=== PATIENT | female | born 1940 | race Caucasian/White ===

== ENCOUNTER 2021-11-06 07:35 | Day surgery (SDC) | payer OTHER ==
[2021-11-04 13:06] LABS: BASOPHILS % (AUTO) 0.7 % (0.0-5.0); EOSINOPHILS % (AUTO) 0.7 % (0.0-8.0); HEMATOCRIT 43.8 % (36-48); LYMPHOCYTES % (AUTO) 14.2 % (21.0-51.0); MEAN CORPUSCULAR HEMOGLOBIN 32.1 pg (27.0-33.0); MEAN CORPUSCULAR HGB CONC 32.9 g/dL (32.0-36.0); MEAN CORPUSCULAR VOLUME 97.8 fL (79-99); MONOCYTES % (AUTO) 10.5 % (3.0-13.0); NEUTROPHILS % (AUTO) 73.5 % (40.0-77.0); PLATELET COUNT (AUTO) 156 K/uL (130-400); RED BLOOD CELL COUNT(AUTO) 4.48 MIL/uL (4.00-5.50); RED CELL DISTRIBUTION WIDTH 14.4 % (11.0-15.5); WHITE BLOOD COUNT (AUTO) 5.7 K/uL (4.8-10.8)
[2021-11-04 13:16] LABS: INR 1.32 (0.85-1.15)
[2021-11-04 13:23] LABS: CREATININE 0.8 mg/dL (0.5-1.5); POTASSIUM 3.6 mmol/L (3.5-5.1)
[2021-11-05 09:00] VITALS: BP 145/91
[~2021-11-06] VITALS: Ht 162.6 cm; Wt 56.8 kg
[2021-11-06] VITALS (21 sets, daily range): BP systolic 122–143; BP diastolic 61–99
[~2021-11-06 07:35] MED LIST: CALC-1125 PO; CALC-866 PO; FURO20TA4 PO; MAGN400T40 PO; METO25TA6 PO; METO50TA18 PO; MULT-1367 PO; POTA99TA26 PO; RIVA20TA PO
[2021-11-06] MEDS ORDERED: 0.9%NACL 1000ML 1,000 ML IV SCH (08:00)
[2021-11-06] MEDS ORDERED: FLUMAZENIL 0.1MG/1ML 5ML VIAL IV ONE (09:03)
[2021-11-06] MEDS ORDERED: FENTANYL CITRATE PF 50 MCG/1 ML 2ML VIAL ONE ×2 (09:04→10:49)
[2021-11-06] MEDS ORDERED: NALOXONE HCL 0.4 MG/1 ML ML ONE (09:04)
[2021-11-06] MEDS ORDERED: MIDAZOLAM HCL 1 MG/ML 2ML VIAL ONE ×2 (09:05→10:49)
== END 2021-11-06 13:35 | disposition home or self-care (01) ==
LOC: DAH 07:35
PROVIDERS: ATTEND Internal Medicine Cardiovascular Disease
DX: I48.0 Paroxysmal atrial fibrillation (principal); I11.0 Hypertensive heart disease with heart failure; I50.22 Chronic systolic (congestive) heart failure; Z87.891 Personal history of nicotine dependence; Z90.49 Acquired absence of other specified parts of digestive tract; Z98.890 Other specified postprocedural states; Z82.49 Family history of ischemic heart disease and other diseases of the circulatory system; Z83.3 Family history of diabetes mellitus; Z72.89 Other problems related to lifestyle; Z88.8 Allergy status to other drugs, medicaments and biological substances; Z79.01 Long term (current) use of anticoagulants
CPT/HCPCS: 36415; 80048; 85025; 85610; 85730; 92960; 93005 ×2; A4215; A4216; A4221; A4222; A4223 ×3; A4606; A4663; A7002; J2250; J3010; J7030 ×2; 99152; J2310; J3490

== ENCOUNTER 2024-08-11 06:07 | Day surgery (SDC) | payer OTHER ==
[2024-08-09 10:44] VITALS: BP 111/78; PULSE 97; RESP 18; TEMP 97.4
[2024-08-09 10:58] LABS: BASOPHILS # (AUTO) 0.04 K/uL (0.00-0.20); BASOPHILS % (AUTO) 0.8 % (0.0-5.0); EOSINOPHILS # (AUTO) 0.05 K/uL (0.00-0.70); HEMATOCRIT 41.8 % (36-48); IMMATURE GRANULOCYTE ABSOLUTE 0.01 K/uL (0-1); LYMPHOCYTES # (AUTO) 1.2 K/uL (1.0-4.8); LYMPHOCYTES % (AUTO) 23.3 % (21.0-51.0); MEAN CORPUSCULAR HEMOGLOBIN 29.8 pg (27.0-33.0); MEAN CORPUSCULAR HGB CONC 32.8 g/dL (32.0-36.0); MEAN CORPUSCULAR VOLUME 91.1 fL (79-99); MONOCYTES # (AUTO) 0.5 K/uL (0.1-1.0); MONOCYTES % (AUTO) 9.9 % (3.0-13.0); NEUTROPHILS # (AUTO) 3.4 K/uL (1.8-7.7); NEUTROPHILS % (AUTO) 64.8 % (40.0-77.0); PLATELET COUNT (AUTO) 255 K/uL (130-400); RED BLOOD CELL COUNT(AUTO) 4.59 MIL/uL (4.00-5.50); RED CELL DISTRIBUTION WIDTH 15.9 % (11.0-15.5); WHITE BLOOD COUNT (AUTO) 5.2 K/uL (4.8-10.8)
--- NOTE | 2024-08-09 11:06 | EKG ---
[facility] Test Date: 2024-08-09 Test Time: 11:31:43 Pat Name: RANDY KELLY Department: [facility] Room: Gender: F Slabber: [id number] : 1940 Requested By: DAO FALLON Order Number: [id number] Reading MD: Rodrigue Petit Measurements Intervals [place] Rate: 91 P: 0 [place]: 0 QRS: 9 QRSD: 93 T: 252 QT: 380 QTc: 467 Interpretive Statements Atrial fibrillation with controlled ventricular response Low voltage, extremity leads Anterolateral ischemia Nonspecific repol abnormality, diffuse leads Compared to ECG 06/21/2024 08:55:23 Low QRS voltage now present Early repolarization now present Myocardial infarct finding still present Electronically Signed On 08-09-2024 19:13:16 [address] FREIGHT CONDUCTOR by Rodrigue Petit Please click the below link to view image of tracing.
[2024-08-09 11:09] LABS: POTASSIUM 5.1 mmol/L (3.5-5.1)
[2024-08-09 11:12] LABS: INR 1.11 (0.85-1.15); PROTHROMBIN TIME 11.9 SEC (9.6-11.6)
[2024-08-09 11:13] LABS: PARTIAL THROMBOPLASTIN TIME 30.3 SEC (26.3-35.5)
[2024-08-09 11:23] LABS: B-TYPE NATRIURETIC PEPTIDE 708 pg/mL (0-100)
--- NOTE | 2024-08-09 11:27 | HMCIMG ---
CHEST 1VW HISTORY: Preop COMPARISON: None FINDINGS: A frontal projection of the chest was obtained. No acute pulmonary infiltrates is seen. Right midlung pulmonary nodule is seen may be related to granuloma. There is dextroscoliosis. Degenerative changes are seen of the heart is enlarged. Aortic calcifications are seen. Mild interstitial fibrotic changes are seen. IMPRESSION: 1. No acute pulmonary infiltrate is seen.
--- NOTE | 2024-08-10 09:19 | NUR ---
REPORT REPORTED BNP/NA/CXR/EKG TO ANNA MERCADO NP. OK TO PROCEED
[2024-08-11] VITALS (12 sets, daily range): BP systolic 95–124; BP diastolic 52–75; PULSE 67–80; RESP 14–16; TEMP 97.3–98.1
[~2024-08-11] VITALS: Ht 162.6 cm; Wt 52.8 kg
[~2024-08-11 06:07] MED LIST changes: -CALC-1125 PO; -CALC-866 PO; +EMPA10TA PO; +LEVO50CA4 PO; +MAGN400C PO; -MAGN400T40 PO; +METO-391 PO; -METO25TA6 PO; -METO50TA18 PO; -POTA99TA26 PO; +SACU1TAB PO; +SPIR25TA6 PO
[2024-08-11] MEDS: 0.9%NACL 1000ML 1,000 ML IV SCH (07:16)
[2024-08-11] MEDS ORDERED: IOHEXOL-350 75 ML VIAL IV ONE (10:17)
[2024-08-11] MEDS ORDERED: NITROGLYCERIN 50MG VIAL ONE (10:17)
[2024-08-11] MEDS ORDERED: LIDOCAINE HCL 400MG/20ML VIAL ONE (10:17)
[2024-08-11] MEDS ORDERED: HEParin-NS 1,000 UNIT/500 ML 1,000 ML IV ONE (10:17)
[2024-08-11] MEDS ORDERED: HEParin 10,000 UNIT/10ML (1,000 UNIT/ML) VIAL ONE (10:17)
[2024-08-11] MEDS ORDERED: FENTanyl CITRate PF 50 MCG/1 ML 2ML VIAL ONE (10:31)
[2024-08-11] MEDS ORDERED: MIDAZOLAM HCL 1 MG/ML 2ML VIAL ONE (10:32)
--- NOTE | 2024-08-11 11:47 | PRN ---
PROCEDURE NOTE Indications: -Chronic systolic congestive heart failure (LVEF: 15-20% 2023) -Persistent atrial fibrillation s/p unsuccessful DCCV on 06/21/2024 -HTN -Normal Lexiscan stress test done on 11/21/2021 -PAD -Former tobacco abuse Procedures: Coronary angiogram, right common femoral angiogram Introduction: After informed written consent was obtained, the patient was brought to the Catheterization Lab in the usual fasting state. Following sterile prep and drape, a time out was performed, then moderate sedation was administered, 1mg of Versed and 50mcg of Fentanyl, then 1% Lidocaine was infiltrated into the right femoral groin. Using a Modified Seldinger technique, a 6Fr Sheath was inserted into the right common femoral artery. While under fluoroscopic guidance, diagnostic coronary catheters were advanced over a wire into the central circulation where they were aspirated, flushed and placed to pressure monitoring, once the wire was removed. Coronary Angio: The left and right coronary arteries were engaged with appropriate catheters and angiography was performed under continuous pressure monitoring. Cardiac Findings: Right dominant system LM: Large caliber vessel with mild luminal irregularities. The vessel bifurcates into the LAD and LCX. LAD: Large caliber vessel with 20% stenosis in the mid LAD. The rest of the vessel has mild luminal irregularities. DIAG1: Medium caliber vessel with mild luminal irregularities DIAG2: Medium caliber vessel with mild luminal irregularities LCx: Large caliber vessel with 20% stenosis in the ostial LCX. The rest of the vessel has mild luminal irregularities. OM1: Large caliber vessel with mild luminal irregularities. RCA: Medium caliber vessel with 30% stenosis in the proximal RCA. The rest of the vessel has mild luminal irregularities. RPDA: Medium caliber vessel with mild luminal irregularities. RPLV: Medium caliber vessel with mild luminal irregularities. Medications given: Versed 1mg, Fentanyl 50mcg Coronary Intervention: None Complications: None Conscious Sedation Monitoring: Under my direct order and supervision, medication for moderate conscious sedation was administered by the nursing staff and the patients level of consciousness and physiological status was monitored by an independent trained nurse. Closure of Access Site: After the case completed the sheath was pulled and manual pressure was applied resulting in hemostasis. Conclusion: 1. Nonobstructive CAD 2. 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 Chronic systolic congestive heart failure (LVEF: 15-20% 2023) 4. Persistent atrial fibrillation s/p unsuccessful DCCV on 06/21/2024 5. HTN 6. Normal Lexiscan stress test done on 11/21/2021 7. PAD 8. Former tobacco abuse Recommendation: 1. Continue goal directed medical therapy 2. Groin precautions 3. 5 hours of bedrest 4. No IV fluids 5. Please administer 40 mg IV furosemide x 1 dose and we will increase her home dose of furosemide to 20 mg BID 6. No driving x 48 hours 7. No strenuous activity or heavy lifting x 2 weeks. 8. Please restart Xarelto 20 mg daily tonight. 9. Okay to discharge home once bedrest is complete and the patient's right groin access site is soft to palpation and free of significant bleeding, bruising, or hematoma formation. 10. The patient will be referred to EP for atrial fibrillation ablation evaluation (appt scheduled for 09/28/2024). DAO FALLON MD Aug 11, 2024 11:47
[2024-08-11] MEDS: furoSEMIDE 40MG VIAL IV ONE (12:58)
== END 2024-08-11 16:30 | disposition home or self-care (01) ==
LOC: DAH 06:07
PROVIDERS: ATTEND Internal Medicine Cardiovascular Disease
DX: I11.0 Hypertensive heart disease with heart failure (principal); I50.22 Chronic systolic (congestive) heart failure; I48.0 Paroxysmal atrial fibrillation; I25.10 Atherosclerotic heart disease of native coronary artery without angina pectoris; I48.19 Other persistent atrial fibrillation; I42.8 Other cardiomyopathies; I87.2 Venous insufficiency (chronic) (peripheral); E11.9 Type 2 diabetes mellitus without complications; J44.9 Chronic obstructive pulmonary disease, unspecified; F17.200 Nicotine dependence, unspecified, uncomplicated; E66.9 Obesity, unspecified; E03.9 Hypothyroidism, unspecified; I25.2 Old myocardial infarction; E78.5 Hyperlipidemia, unspecified; K21.9 Gastro-esophageal reflux disease without esophagitis; Z86.73 Personal history of transient ischemic attack (TIA), and cerebral infarction without residual deficits; Z68.35 Body mass index [BMI] 35.0-35.9, adult; Z90.710 Acquired absence of both cervix and uterus; Z98.890 Other specified postprocedural states; Z88.5 Allergy status to narcotic agent; Z88.8 Allergy status to other drugs, medicaments and biological substances; Z79.899 Other long term (current) drug therapy
CPT/HCPCS: 80048; 83880; 85025; 85610; 85730; 36415; 71045; 93005; 93454; 82948; C1894 ×2; J3010; J3490 ×2; J7030; J2250; J1940; J1644; Q9967; A4215; A4335; A4222; A4221; A4663; A4216; A4606; A4223 ×3; A4554; 99156; 99157

== ENCOUNTER 2024-10-13 06:42 | Observation (INO) | payer OTHER ==
[~2024-10-13] VITALS: Ht 162.6 cm; Wt 49.9 kg
[2024-10-13 07:50] LABS: BASOPHILS # (AUTO) 0.04 K/uL (0.00-0.20); BASOPHILS % (AUTO) 0.8 % (0.0-5.0); EOSINOPHILS # (AUTO) 0.06 K/uL (0.00-0.70); EOSINOPHILS % (AUTO) 1.1 % (0.0-8.0); HEMATOCRIT 43.6 % (36-48); IMMATURE GRANULOCYTE ABSOLUTE 0.02 K/uL (0-1); LYMPHOCYTES # (AUTO) 1.1 K/uL (1.0-4.8); LYMPHOCYTES % (AUTO) 21.4 % (21.0-51.0); MEAN CORPUSCULAR HEMOGLOBIN 31.7 pg (27.0-33.0); MEAN CORPUSCULAR HGB CONC 34.2 g/dL (32.0-36.0); MEAN CORPUSCULAR VOLUME 92.8 fL (79-99); MONOCYTES # (AUTO) 0.8 K/uL (0.1-1.0); MONOCYTES % (AUTO) 14.2 % (3.0-13.0); NEUTROPHILS # (AUTO) 3.3 K/uL (1.8-7.7); NEUTROPHILS % (AUTO) 62.1 % (40.0-77.0); PLATELET COUNT (AUTO) 263 K/uL (130-400); RED CELL DISTRIBUTION WIDTH 17.5 % (11.0-15.5); WHITE BLOOD COUNT (AUTO) 5.3 K/uL (4.8-10.8)
[2024-10-13 08:18] LABS: ALBUMIN 4.3 g/dL (3.5-5.0); BILIRUBIN,TOTAL 0.9 mg/dL (0.2-1.0); CREATININE 0.8 mg/dL (0.5-1.0); MAGNESIUM 1.9 mg/dL (1.80-2.40); POTASSIUM 4.3 mmol/L (3.5-5.1); THYROID STIMULATING HORMONE 0.7 uIU/mL (0.36-3.74)
[2024-10-13] MEDS: AMIOdarone 900MG VIAL 150 MG in DEXTROSE 5%-WATER 100 ML IV SCH (09:46)
[2024-10-13] MEDS: AMIOdarone 900MG VIAL 360 MG in DEXTROSE 5%-WATER 200 ML IV SCH (10:00)
--- NOTE | 2024-10-13 10:07 | EKG ---
[facility] Test Date: 2024-10-13 Test Time: 09:44:07 Pat Name: RANDY KELLY Department: DIRECT Room: 217 Gender: F Gas Specialist: [id number] : 1940 Requested By: CHACORTA CARTER Order Number: [id number] Reading MD: Ollie Glynn Measurements Intervals [place] Rate: 68 P: 0 [place]: 0 QRS: -14 QRSD: 106 T: -63 QT: 418 QTc: 445 Interpretive Statements Atrial fibrillation Low voltage, extremity leads Abnormal T, consider ischemia, diffuse leads Compared to ECG 08/09/2024 11:31:43 T-wave abnormality now present Early repolarization no longer present Possible ischemia still present Electronically Signed On 10-14-2024 17:37:19 ADMISSIONS GATE ATTENDANT by Ollie Glynn Please click the below link to view image of tracing.
[2024-10-13] MEDS ORDERED: DiphenhydrAMINE HCL 25 MG CAPSULE PO PRN (16:00)
[2024-10-13] MEDS: AMIOdarone 900MG VIAL 540 MG in DEXTROSE 5%-WATER 300 ML IV SCH (16:40)
--- NOTE | 2024-10-13 19:17 | NUR ---
PATIENT AMBLATED STEADY GAIT TO BATHROOM WITH IV PUMP, SANDWICH AND FLUIDS GIVEN PER REQUEST.
[2024-10-13] MEDS: ZOLPidem TARTrate 5 MG TAB PO PRN (22:26)
[2024-10-14] VITALS (23 sets, daily range): BP systolic 83–147; BP diastolic 35–82; PULSE 35–76; RESP 12–34; TEMP 98.6; O2SAT 100
--- NOTE | 2024-10-14 02:45 | NUR ---
ASSUMED PT CARE
[2024-10-14] MEDS ORDERED: proPOFol 10 MG/ML 20ML VIAL IV ONE (09:16)
--- NOTE | 2024-10-14 09:56 | PRN ---
Procedure Note INDICATION FOR PROCEDURE: Persistent atrial fibrillation PROCEDURE: Cardioversion DATE OF PROCEDURE: 10/14/2024 CABLEMAN: Dr. Ace Carter PROCEDURE NOTE: The patient was prepared in her room in a fasting state. General anesthesia was provided by the anesthesia service. A single synchronized shock of 120 joules was delivered resulting in sinus bradycardia with accelerated junctional escape beats. The patient tolerated the procedure well. IMPRESSION: 1. Persistent atrial fibrillation status post successful cardioversion 2. Sinus bradycardia with accelerated junctional escape beats. PLAN: 1. Discontinue home metoprolol. Of note, she has not been getting it in the hospital. 2. We will observe for a few hours and observe her heart rate as she ambulates, etc. 3. Amiodarone IV protocol has just completed. The patient does weigh only 50 kg. We will evaluate her discharge dose of amiodarone later today and prior to discharge. ACE CARTER MD Oct 14, 2024 09:56
--- NOTE | 2024-10-14 11:00 | EKG ---
[facility] Test Date: 2024-10-14 Test Time: 09:41:44 Pat Name: RANDY KELLY Department: [facility] Room: 217 1 Gender: F Health Data Administrator: SUJATHA : 1940 Requested By: CHACORTA CARTER Order Number: [id number] Reading MD: Ollie Glynn Measurements Intervals [place] Rate: 42 P: 0 [place]: 0 QRS: 2 QRSD: 92 T: -61 QT: 520 QTc: 434 Interpretive Statements Atrial fibrillation with slow ventricular response Septal infarct , age undetermined ST & T wave abnormality, consider inferior ischemia Compared to ECG 10/13/2024 09:44:07 Myocardial infarct finding now present ST (T wave) deviation now present T-wave abnormality no longer present Possible ischemia still present Electronically Signed On 10-14-2024 17:40:13 IT COMPLIANCE MANAGER by Ollie Glynn Please click the below link to view image of tracing.
[2024-10-14] MEDS ORDERED: AMIO200T68 PO (12:56)
--- NOTE | 2024-10-14 13:02 | DS ---
Discharge Summary HOSPITAL COURSE SUMMARY: The patient was electively admitted for intravenous amiodarone infusion protocol followed by cardioversion. The 24 hour infusion was completed this morning. She then underwent successful cardioversion with 120 joules. She came back with sinus bradycardia in the 40s with some junctional escape beats. She was observed for about an hour and then took and accompanied hallway walk at which time her heart rate increased to the 50s to 70s. She felt reasonably well. PROCEDURES: Cardioversion as noted above. DISCHARGE INSTRUCTIONS/PLAN: 1. The patient will start amiodarone 200 mg daily starting tomorrow morning 2. I will see her in the office in approximately 2 weeks 3. Repeat echocardiogram in approximately 1 month with continued protection via LifeVest in the interim 4. We will tentatively plan to performed catheter ablation in the near future 5. The ejection fraction remains less than 35% after 3 months, then she will require ICD implantation. Home Meds Reported Medications Spironolactone (Spironolactone) 25 Mg Tablet, 25 MG PO NOON, TAB 08/09/24 Multivitamin (Multivitamin) 1 Each Tablet, 1 EACH PO DAILY, TAB 08/09/24 Magnesium Oxide (Magnesium) 400 Mg Magnesium Capsule, 400 MG PO DAILY, CAP 08/09/24 Furosemide (Furosemide) 20 Mg Tablet, 20 MG PO DAILY, TAB TAKE FUROSEMIDE 20 MG ONE TABLET BY MOUTH TWICE A DAY. 08/09/24 Sacubitril/Valsartan (Entresto 24 mg-26 mg Tablet) 24 Mg-26 Mg Tablet, 1 EACH PO BID, TAB 08/09/24 Metoprolol Succinate (Metoprolol Succinate) 50 Mg Tab.er.24h, 50 MG PO BID, TAB 08/09/24 Empagliflozin (Jardiance) 10 Mg Tablet, 10 MG PO DAILY, TAB 08/09/24 Levothyroxine Sodium (Levothyroxine) 50 Mcg Capsule, 50 MCG PO ACBKFST, CAP 08/09/24 Rivaroxaban (Xarelto) 20 Mg Tablet, 20 MG PO HS, TAB 11/05/21 CHACORTA CARTER MD Oct 14, 2024 13:02
--- NOTE | 2024-10-14 14:41 | NUR ---
DISCHARGED HOME PER DR CARTER, PIV'S DISCONTINUED AFTER DISCHARGED ORDERS RECEIVED. DISCHARGE INSTRUCTIONS REVIEWED WITH PATIENT. DR CAPELLAN WITH DR CARTER ALSO REVIEWED.
== END 2024-10-14 14:00 | disposition home or self-care (01) ==
LOC: EDH 06:42 → UNDOADMOB 06:43 → DIRECT 06:43 → EDHIP 06:43 → 2CH 10-14 08:08 → UNDODISOB 10-14 14:00
PROVIDERS: ADMIT Internal Medicine Cardiovascular Disease; ATTEND Internal Medicine Cardiovascular Disease
DX: I48.19 Other persistent atrial fibrillation (principal); I49.2 Junctional premature depolarization; R00.1 Bradycardia, unspecified; Z79.01 Long term (current) use of anticoagulants; Z79.84 Long term (current) use of oral hypoglycemic drugs; Z79.899 Other long term (current) drug therapy
CPT/HCPCS: 96376; 96365; 96366; 84443; 83735; 80053; 85025; 84439; 36415; 93005 ×2; 92960; G0378 ×30; G0379; J7060 ×3; J0282 ×3; J2704; J3490